=== PATIENT | male | born 1950 | race Caucasian/White ===

== ENCOUNTER → 2018-07-06 | Outpatient (CLI) | payer MEDICARE ==
[~2018-07-06] MED LIST: IOHEXOL 240 MG/ML 50ML VIAL. PO ONE; IOHEXOL 300 MG/ML 100ML VIAL. IV ONE
--- NOTE | 2018-07-06 13:41 | RAD ---
CT abdomen and pelvis with contrast History: Abdominal protuberance Technique: After the administration of oral and intravenous contrast, CT imaging was performed of the abdomen and pelvis. Multiplanar images are reviewed. Exposure: One or more of the following individualized dose reduction techniques were utilized for this examination: 1. Automated exposure control 2. Adjustment of the mA and/or kV according to patient size 3. Use of iterative reconstruction technique. Contrast: 75 cc Omnipaque 300 Comparison: None Findings: There is mild atelectasis of the visualized bilateral lung bases. There is no significant focal abnormality of the liver, spleen, pancreas, adrenal glands. There is splenomegaly on the order of 6.1 x 15.4 x 15 cm. Both kidneys enhance without hydronephrosis. There is exophytic enhancing solid mass of the mid left kidney about 3 cm transverse by 2.4 cm AP by 2.5 cm cc. There is also separate hypodense lesion of the mid to superior left kidney more posteriorly about 2.7 cm in size, density measurements 17 Hounsfield units suggestive of a cyst. There is nonspecific mild strandy change of the bilateral perinephric fat. Gallbladder is present without obvious intraluminal abnormality by CT. Bowel is not significantly dilated. There is no free air or free fluid. There is fat in the inguinal canals bilaterally greater on the left without internal bowel, mild nonspecific density at the margin of the right inguinal hernia. There is some laxity of the ventral abdominal fascia more centrally. Visualized ascending thoracic aorta is dilated about 4 cm. There is multilevel lumbar facet degenerative change. There is degenerative disc disease greatest at L5-S1. Impression: 1. There is exophytic solid mass of the mid left kidney, renal cell carcinoma until proven otherwise. There is a separate likely cyst of the left kidney. 2. There is fat in the inguinal canals bilaterally without internal bowel. 3. There is splenomegaly. 4. There is dilatation of the visualized ascending thoracic aorta about 4 cm. Findings were left on the voicemail Dr. Moerno's nurse Flores at 07/06/2018 1:36 PM. Electronically signed by: Mal Francis MD (07/06/2018 1:38 PM) [id number]
== END | disposition home or self-care (01) ==
LOC: CT 11:45
PROVIDERS: ATTEND Surgery
DX: N28.89 Other specified disorders of kidney and ureter (principal); M51.37 Other intervertebral disc degeneration, lumbosacral region; J98.11 Atelectasis; R16.1 Splenomegaly, not elsewhere classified
CPT/HCPCS: 74177; Q9966; Q9967

== ENCOUNTER → 2018-08-03 | Outpatient (CLI) | payer MEDICARE ==
--- NOTE | 2018-08-03 10:15 | RAD ---
CHEST PA LATERAL Clinical indications:. Left renal mass. PRE-OP FOR KIDNEY SURGERY the patient is 67 years old. COMPARISON: None available. Findings: There is a calcified granuloma of the right upper lobe. Decreased inspiration is evident. No acute lung infiltrate or pleural effusion or pulmonary edema or lung mass or pneumothorax is seen. The heart size, pulmonary vasculature, mediastinum and both ivan are unremarkable. The osseous structures appear intact. Impression: No acute radiographic abnormality is seen. Electronically signed by: Rickey Kinsey MD (08/03/2018 10:11 AM) [facility]
--- NOTE | 2018-08-03 10:25 | RAD ---
EXAM: Abdomen and pelvis CT without intravenous contrast. HISTORY: Left renal mass. TECHNIQUE: Computed tomographic images of the abdomen and pelvis were obtained without contrast. Multiplanar reformatting was performed. *One or more of the following individualized dose reduction techniques were utilized for this examination: 1. Automated exposure control. 2. Adjustment of the mA and/or kV according to patient size. 3. Use of iterative reconstruction technique. COMPARISON: 07/06/2018. FINDINGS: Evaluation of the lower thorax demonstrates lingular and right middle lobe linear atelectasis or scarring. There is bilateral lower lobe atelectasis. No hepatic lesion is seen. The gallbladder, pancreas and adrenal glands are unremarkable. The spleen is enlarged, measuring 15.5 cm. There is a 3.0 cm mass within the lateral mid zone of the left kidney, difficult to assess in the absence of contrast. This appears not significantly changed compared to the prior study, allowing for differences in imaging technique. There is a stable 3.2 cm cyst within the mid zone of the left kidney. There is a stable 5 mm fat density lesion within the anterior mid zone of the right kidney, likely an angiomyolipoma. There is no nephroureterolithiasis or obstructive uropathy. There is stable left inferior perinephric stranding and trace fluid. There is no appendicitis. There is no bowel obstruction. The urinary bladder is unremarkable. There are prostate calcifications. There are fat-containing left greater than right inguinal hernias. There is aortobiiliac atherosclerosis. No pathologically enlarged lymph node is seen. There is a stable right inferior aortocaval lymph node measuring 1.1 cm. There is evidence of prior ventral abdominal wall hernia repair. There is a hemangioma within the L2 vertebral body. No suspicious osseous lesion is seen. IMPRESSION: 1. 3.0 cm left renal mass concerning for renal cell carcinoma. This is difficult to compare to the prior study due to the absence of contrast on the current exam. This appears not signally changed when allowing for differences in technique. 2. 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 3. Splenomegaly. Electronically signed by: Flores Bella MD (08/03/2018 10:22 AM) [email or web address]
== END | disposition home or self-care (01) ==
LOC: CT 09:30
PROVIDERS: ATTEND Urology
DX: Z01.818 Encounter for other preprocedural examination (principal); N28.89 Other specified disorders of kidney and ureter; J84.10 Pulmonary fibrosis, unspecified; N28.1 Cyst of kidney, acquired; I70.0 Atherosclerosis of aorta; D18.09 Hemangioma of other sites; K40.20 Bilateral inguinal hernia, without obstruction or gangrene, not specified as recurrent; R16.1 Splenomegaly, not elsewhere classified
CPT/HCPCS: 71046; 74176

== ENCOUNTER → 2019-02-24 | Outpatient (CLI) | payer MEDICARE ==
[2019-02-24 09:38] LABS: CREATININE 0.8 mg/dL (0.7-1.3); GFR 96.7
--- NOTE | 2019-02-24 12:35 | RAD ---
Examination: CT of the abdomen pelvis without and with IV contrast HISTORY: History of renal mass. COMPARISON: 08/03/2018 TECHNIQUE: Axial CT images of the abdomen pelvis were performed without and with IV contrast. Coronal and sagittal reformats are performed Exposure: One or more of the following individualized dose reduction techniques were utilized for this examination: 1. Automated exposure control 2. Adjustment of the mA and/or kV according to patient size 3. Use of iterative reconstruction technique FINDINGS: The bibasilar lungs are clear. No evidence of free air identified in the abdomen. The visualized liver, spleen, adrenals grossly appears unremarkable. Gallbladder is mildly distended. The stomach is mildly distended. The visualized pancreas grossly appears unremarkable. The small bowel is nondilated. Feces and gas noted in the colon. The appendix is normal. Surgical changes identified in the left kidney. There is a cystic structure identified in the left kidney measuring 3.2 cm which is unchanged likely a cyst. Mild fat stranding identified about the bilateral kidneys. There is a small fatty density identified in the right kidney similar to prior exam likely a small angiomyolipoma. The renal veins appear patent. Urinary bladder is mildly distended Mild enlarged prostate gland. A fat-containing moderate left inguinal hernia is unchanged. Moderate degenerative changes lumbar spine. IMPRESSION: 1. The previously visualized left renal mass is not identified likely prior surgical changes. No evidence of recurrent mass. 2. A 3.2 cm cystic structure identified in the left kidney similar to prior exam likely a cyst. Electronically signed by: Jose Jade MD (02/24/2019 12:32 PM) [email or web address]
== END | disposition home or self-care (01) ==
LOC: CT 08:47
PROVIDERS: ATTEND Urology
DX: C64.2 Malignant neoplasm of left kidney, except renal pelvis (principal); K40.90 Unilateral inguinal hernia, without obstruction or gangrene, not specified as recurrent; N40.0 Benign prostatic hyperplasia without lower urinary tract symptoms; K82.8 Other specified diseases of gallbladder; K31.89 Other diseases of stomach and duodenum
CPT/HCPCS: 36415; 74178; 82565; Q9966; Q9967